=== PATIENT | male | born 1985 | race Caucasian/White ===

== ENCOUNTER 2016-07-29 12:17 | Emergency (ER) | payer SELFPAY ==
[2016-07-29] MEDS ORDERED: NORCO, ANEXSIA 5/325MG TABLET (HYDROcodone/ACETAMINOPHEN) As Ordered ONE (12:50)
--- NOTE | 2016-07-29 13:20 | REP ---
Clinical: Trauma . Technique: AP, lateral, bilateral oblique, and coned-down views. Findings: Alignment and lordosis is maintained. The vertebral bodies including transverse process and spinous processes are intact and normal. There is no evidence for acute fracture / compression injury or subluxation. No evidence for spondylolysis or spondylolisthesis. No significant degenerative change is noted. Impression: Normal lumbosacral spine radiograph series. Signed by Bertrand Mistry MD 07/29/2016 01:11 P
--- NOTE | 2016-07-29 13:35 | EDDOCDS ---
Nurse's Notes [facility] Name: Flaquito Mcghee Jr Age: 30 yrs Sex: Male : 1985 Arrival Date: 07/29/2016 Time: 12:17 Bed TR8 Private MD: NO PRIMARY PHYSICIAN, . Diagnosis: Low back pain Presentation: 07/29 12:23 Presenting complaint: Patient states: fell down 4 steps and felt back pop last night. hs1 Patient states used heat and ice last night to try and help with pain and has called off work because he cannot work with pain. Lower back around hip area radiates to upper back. Adult Sepsis Screening: The patient does not have new or worsening altered mentation. Patient's respiratory rate is less than 22. Systolic blood pressure is greater than 100. Patient has a qSOFA score of 0- Negative Sepsis Screen. Suicide/Homicide risk assessment- the patient denies having any suicidal and/or homicidal ideations and does not present with any other emotional, behavioral or mental health complaints. Status: Patient is not a postal service mail processor or dependent. Transition of care: patient was not received from another setting of care. 12:23 Acuity: JOE Level 4 hs1 12:23 Method Of Arrival: Walkin/Carried/Asstd hs1 Triage Assessment: 12:26 General: Appears in no apparent distress, Behavior is appropriate for age, cooperative. hs1 Pain: Location: back Pain currently is 6 out of 10 on a pain scale. Pt Declines HIV testing. Musculoskeletal: Circulation, motion, and sensation intact Range of motion intact in all extremities. Reports Pain is 6 out of 10 on a pain scale. Historical: - Allergies: no known allergies; - Home Meds: 1. Advil PM 200-38 mg oral tab 2 tab (Last dose: 07/28/2016 21:00) - PMHx: Chronic Back pain; - PSHx: none; - Social history: Smoking status: Patient states was never smoker of tobacco. No barriers to communication noted, The patient speaks fluent Serbian, Speaks appropriately for age. - Family history: Not pertinent. - : The pt / caregiver states he / she is not on anticoagulants. Home medication list is obtained from the patient. - Exposure Risk Screening:: None identified. Screenin:31 Screening information is obtained from the patient. Fall risk: No risks identified. ms18 Assistance ADL's: requires no assistance with activities of daily living. Abuse/DV Screen: The patient / caregiver reports he/she is: not in a situation that causes fear, pain or injury. Nutritional screening: No deficits noted. Advance Directives: There is no living will. home support is adequate. Assessment: 13:31 General: Appears in no apparent distress, comfortable, Behavior is appropriate for age, ms18 cooperative, pleasant. Pain: Location: back. Neurological: Level of Consciousness is awake, alert, obeys commands, Oriented to person, place, time. Cardiovascular: Chest pain is denied. Respiratory: Airway is patent Respiratory effort is even, unlabored, Denies shortness of breath. Derm: Skin is pink, warm & dry. Musculoskeletal: Range of motion intact in all extremities. No deformity noted. Vital Signs: 12:18 BP 115 / 75; Pulse 108; Resp 18 S; Temp 96.8; Pulse Ox 99% on R/A; Weight 68.04 kg (R); dd6 Height 5 ft. 9 in. (175.26 cm) (R); 13:33 BP 116 / 54 RA Sitting (auto/lg); Pulse 83; Resp 18; Temp 98.9(O); Pulse Ox 97% on R/A; rs6 Pain 6/10; 12:18 Body Mass Index 22.15 (68.04 kg, 175.26 cm) dd6 Vitals: 12:18 Log In Time: July 29, 2016 at 12:16. dd6 ED Course: 12:18 Patient visited by Rashi Casillas PCA. dd6 12:18 NO PRIMARY PHYSICIAN, . is Private Physician. dd6 12:18 Patient moved to Waiting dd6 12:18 Patient moved to Pre RCE dd6 12:25 Triage Initiated hs1 12:42 Patient moved to Triage 2 hs1 12:44 [facility] ke 12:44 Patient visited by Bhavesh French FNP. ke 12:44 Patient visited by Bhavesh French FNP. ke 12:51 Patient moved to TR6 ms18 12:56 Patient name changed from Flaquito\S\A\S\Taz Jr\S\ to Flaquito\S\Dinh\S\Taz Farias. EDMS 13:01 [facility] Payment Agreement was scanned into [employer] and attached to record. mm15 13:12 Patient moved to TR1 ms18 13:22 Patient visited by Bhavesh French FNP. ke 13:24 [facility] is Referral Physician. ke 13:27 Patient moved to PD2 / 27 ms18 13:31 Patient moved to TR8 ms18 13:31 The patient / caregiver is instructed regarding the plan of care and ED course. Patient ms18 has correct armband on for positive identification. Property sent home with patient. 13:31 No IV's were initiated during this patient's visit. No procedures done that require ms18 assistance. 13:33 Patient visited by Maria Antonia Goodwin PCA. rs6 Administered Medications: 12:51 Drug: HYDROcodone-acetaminophen 1 tabs [hydrocodone 5 mg-acetaminophen 325 mg tablet (1 ms18 tabs)] Route: PO; Order Results: There are currently no results for this order. Outcome: 13:24 Discharge ordered by Provider. ke 13:31 Discharge Assessment: Patient awake, alert and oriented x 3. No cognitive and/or ms18 functional deficits noted. Patient verbalized understanding of disposition instructions. patient administered narcotics - no. The following High Risk Discharge criteria are identified: None. Discharged to home ambulatory. Condition: good Condition: stable. Discharge instructions given to patient, Instructed on discharge instructions, follow up and referral plans. medication usage, Demonstrated understanding of instructions, medications, Pt was receptive of discharge instructions/ teaching. Prescriptions given X 2. No special radiology studies were completed. 13:34 Patient left the ED. ms18 Signatures: Dispatcher MedHo EDMS Bhavesh French FNP FNP ke [place], Daniell, PEWTER CASTER PEWTER CASTER dd6 Afia Gutierrez, RN RN hs1 Shanon Valenzuela mm15 Arcelia Kauffman RN RN ms18 Maria Antonia Goodiwn, PEWTER CASTER PEWTER CASTER rs6 MTDD
--- NOTE | 2016-07-29 13:35 | EDDOCDS ---
Physician Documentation [facility] Name: Flaquito Mcghee Jr Age: 30 yrs Sex: Male : 1985 Arrival Date: 07/29/2016 Time: 12:17 Bed TR8 Private MD: NO PRIMARY PHYSICIAN, . Disposition: 07/29/16 13:24 Discharged to Home/Self Care. Impression: Low back pain. - Condition is Stable. - Discharge Instructions: Back Pain, Adult, Musculoskeletal Pain. - Prescriptions for Ibuprofen 600 mg Oral Tablet - take 1 tablet by ORAL route every 6 hours As needed take with food; 30 tablet. Cyclobenzaprine 10 mg Oral Tablet - take 1 tablet by ORAL route 3 times per day As needed; 15 tablet. - Medication Reconciliation, Local Pharmacy Hours form. - Follow up: [facility]; When: Call to arrange an appointment; Reason: Continuance of care. - Problem is an acute exacerbation. - Symptoms are unchanged. Historical: - Allergies: no known allergies; - Home Meds: 1. Advil PM 200-38 mg oral tab 2 tab (Last dose: 07/28/2016 21:00) - PMHx: Chronic Back pain; - PSHx: none; - Social history: Smoking status: Patient states was never smoker of tobacco. No barriers to communication noted, The patient speaks fluent Tuvaluan, Speaks appropriately for age. - Family history: Not pertinent. - : The pt / caregiver states he / she is not on anticoagulants. Home medication list is obtained from the patient. - Exposure Risk Screening:: None identified. Vital Signs: 07/29 12:18 BP 115 / 75; Pulse 108; Resp 18 S; Temp 96.8; Pulse Ox 99% on R/A; Weight 68.04 kg / dd6 150 lbs (R); Height 5 ft. 9 in. (175.26 cm) (R); 13:33 BP 116 / 54 RA Sitting (auto/lg); Pulse 83; Resp 18; Temp 98.9(O); Pulse Ox 97% on R/A; rs6 Pain 12/27; 12:18 Body Mass Index 22.15 (68.04 kg, 175.26 cm) dd6 MDM: 12:48 HYDROcodone-acetaminophen 5 mg-325 mg 1 tabs PO once ordered. ke 12:49 Spine. Lumbosacral, Complete Ordered. EDMS 13:01 Financial registration complete. mm15 13:01 [facility] Payment Agreement was scanned into [employer] and attached to record. mm15 Administered Medications: 12:51 Drug: HYDROcodone-acetaminophen 1 tabs [hydrocodone 5 mg-acetaminophen 325 mg tablet (1 ms18 tabs)] Route: PO; Signatures: Dispatcher MedHost EDMS Bhavesh French FNP HARBOR ENGINEER Afia Sanchez RN RN hs1 Shanon Valenzuela mm15 Arcelia Kauffman RN RN ms18 The chart was reviewed and I authenticate all verbal orders and agree with the evaluation and treatment provided.Attachments: 13:01 [facility] Payment Agreement mm15 MTDD
--- NOTE | 2016-07-31 14:35 | EDDOCDS ---
Nurse's Notes [facility] Name: Flaquito Mcghee Jr Age: 30 yrs Sex: Male : 1985 Arrival Date: 07/29/2016 Time: 12:17 Bed TR8 Private MD: NO PRIMARY PHYSICIAN, . Diagnosis: Low back pain Presentation: 07/29 12:23 Presenting complaint: Patient states: fell down 4 steps and felt back pop last night. hs1 Patient states used heat and ice last night to try and help with pain and has called off work because he cannot work with pain. Lower back around hip area radiates to upper back. Adult Sepsis Screening: The patient does not have new or worsening altered mentation. Patient's respiratory rate is less than 22. Systolic blood pressure is greater than 100. Patient has a qSOFA score of 0- Negative Sepsis Screen. Suicide/Homicide risk assessment- the patient denies having any suicidal and/or homicidal ideations and does not present with any other emotional, behavioral or mental health complaints. Status: Patient is not a protective service specialist or dependent. Transition of care: patient was not received from another setting of care. 12:23 Acuity: JOE Level 4 hs1 12:23 Method Of Arrival: Walkin/Carried/Asstd hs1 Triage Assessment: 12:26 General: Appears in no apparent distress, Behavior is appropriate for age, cooperative. hs1 Pain: Location: back Pain currently is 6 out of 10 on a pain scale. Pt Declines HIV testing. Musculoskeletal: Circulation, motion, and sensation intact Range of motion intact in all extremities. Reports Pain is 6 out of 10 on a pain scale. Historical: - Allergies: no known allergies; - Home Meds: 1. Advil PM 200-38 mg oral tab 2 tab (Last dose: 07/28/2016 21:00) - PMHx: Chronic Back pain; - PSHx: none; - Social history: Smoking status: Patient states was never smoker of tobacco. No barriers to communication noted, The patient speaks fluent Yoruba, Speaks appropriately for age. - Family history: Not pertinent. - : The pt / caregiver states he / she is not on anticoagulants. Home medication list is obtained from the patient. - Exposure Risk Screening:: None identified. Screenin:31 Screening information is obtained from the patient. Fall risk: No risks identified. ms18 Assistance ADL's: requires no assistance with activities of daily living. Abuse/DV Screen: The patient / caregiver reports he/she is: not in a situation that causes fear, pain or injury. Nutritional screening: No deficits noted. Advance Directives: There is no living will. home support is adequate. Assessment: 13:31 General: Appears in no apparent distress, comfortable, Behavior is appropriate for age, ms18 cooperative, pleasant. Pain: Location: back. Neurological: Level of Consciousness is awake, alert, obeys commands, Oriented to person, place, time. Cardiovascular: Chest pain is denied. Respiratory: Airway is patent Respiratory effort is even, unlabored, Denies shortness of breath. Derm: Skin is pink, warm & dry. Musculoskeletal: Range of motion intact in all extremities. No deformity noted. Vital Signs: 12:18 BP 115 / 75; Pulse 108; Resp 18 S; Temp 96.8; Pulse Ox 99% on R/A; Weight 68.04 kg (R); dd6 Height 5 ft. 9 in. (175.26 cm) (R); 13:33 BP 116 / 54 RA Sitting (auto/lg); Pulse 83; Resp 18; Temp 98.9(O); Pulse Ox 97% on R/A; rs6 Pain 6/10; 12:18 Body Mass Index 22.15 (68.04 kg, 175.26 cm) dd6 Vitals: 12:18 Log In Time: July 29, 2016 at 12:16. dd6 ED Course: 12:18 Patient visited by Rashi Casillas PCA. dd6 12:18 NO PRIMARY PHYSICIAN, . is Private Physician. dd6 12:18 Patient moved to Waiting dd6 12:18 Patient moved to Pre RCE dd6 12:25 Triage Initiated hs1 12:42 Patient moved to Triage 2 hs1 12:44 [facility] ke 12:44 Patient visited by Bhavesh French FNP. ke 12:44 Patient visited by Bhavesh French FNP. ke 12:51 Patient moved to TR6 ms18 12:56 Patient name changed from Flaquito\S\A\S\Taz Jr\S\ to Flaquito\S\Dinh\S\Taz Farias. EDMS 13:01 [facility] Payment Agreement was scanned into pMDsoft and attached to record. mm15 13:12 Patient moved to TR1 ms18 13:22 Patient visited by Bhavesh French FNP. ke 13:24 [facility] is Referral Physician. ke 13:27 Patient moved to PD2 / 27 ms18 13:31 Patient moved to TR8 ms18 13:31 The patient / caregiver is instructed regarding the plan of care and ED course. Patient ms18 has correct armband on for positive identification. Property sent home with patient. 13:31 No IV's were initiated during this patient's visit. No procedures done that require ms18 assistance. 13:33 Patient visited by Maria Antonia Goodwin PCA. rs6 14:14 Spine. Lumbosacral, Complete Returned. EDMS 14:30 T-Sheet-- Draft Copy was scanned into pMDsoft and attached to record. gb Administered Medications: 12:51 Drug: HYDROcodone-acetaminophen 1 tabs [hydrocodone 5 mg-acetaminophen 325 mg tablet (1 ms18 tabs)] Route: PO; Order Results: Radiology Order: Spine. Lumbosacral, Complete Test: Spine. Lumbosacral, Complete REASON FOR EXAMINATION: Trauma; Clinical: Trauma .; ; Technique: AP, lateral, bilateral oblique, and coned-down views.; ; Findings: Alignment and lordosis is maintained. The vertebral bodies including; transverse process and spinous processes are intact and normal. There is no; evidence for acute fracture / compression injury or subluxation. No evidence for; spondylolysis or spondylolisthesis. No significant degenerative change is; noted.; ; Impression:; Normal lumbosacral spine radiograph series.; ; ; Signed by; Bertrand Mistry MD 07/29/2016 01:11 P; Outcome: 13:24 Discharge ordered by Provider. ke 13:31 Discharge Assessment: Patient awake, alert and oriented x 3. No cognitive and/or ms18 functional deficits noted. Patient verbalized understanding of disposition instructions. patient administered narcotics - no. The following High Risk Discharge criteria are identified: None. Discharged to home ambulatory. Condition: good Condition: stable. Discharge instructions given to patient, Instructed on discharge instructions, follow up and referral plans. medication usage, Demonstrated understanding of instructions, medications, Pt was receptive of discharge instructions/ teaching. Prescriptions given X 2. No special radiology studies were completed. 13:34 Patient left the ED. ms18 Signatures: Dispatcher MedHost EDMS Quita Collins, Reg Reg gb Bhavesh French, DESIGN SALES CONSULTANT DESIGN SALES CONSULTANT Rashi Oconnor, CRITICAL CARE NURSE PRACTITIONER CRITICAL CARE NURSE PRACTITIONER dd6 Afia Gutierrez, RN RN hs1 Shanon Valenzuela mm15 Arcelia Kauffman RN RN ms18 Maria Antonia Goodwin, CRITICAL CARE NURSE PRACTITIONER CRITICAL CARE NURSE PRACTITIONER rs6 Chart Complete MTDD
--- NOTE | 2016-07-31 14:35 | EDDOCDS ---
Physician Documentation [facility] Name: Flaquito Mcghee Jr Age: 30 yrs Sex: Male : 1985 Arrival Date: 07/29/2016 Time: 12:17 Bed TR8 Private MD: NO PRIMARY PHYSICIAN, . Disposition: 07/29/16 13:24 Discharged to Home/Self Care. Impression: Low back pain. - Condition is Stable. - Discharge Instructions: Back Pain, Adult, Musculoskeletal Pain. - Prescriptions for Ibuprofen 600 mg Oral Tablet - take 1 tablet by ORAL route every 6 hours As needed take with food; 30 tablet. Cyclobenzaprine 10 mg Oral Tablet - take 1 tablet by ORAL route 3 times per day As needed; 15 tablet. - Medication Reconciliation, Local Pharmacy Hours form. - Follow up: [facility]; When: Call to arrange an appointment; Reason: Continuance of care. - Problem is an acute exacerbation. - Symptoms are unchanged. Historical: - Allergies: no known allergies; - Home Meds: 1. Advil PM 200-38 mg oral tab 2 tab (Last dose: 07/28/2016 21:00) - PMHx: Chronic Back pain; - PSHx: none; - Social history: Smoking status: Patient states was never smoker of tobacco. No barriers to communication noted, The patient speaks fluent North Korean, Speaks appropriately for age. - Family history: Not pertinent. - : The pt / caregiver states he / she is not on anticoagulants. Home medication list is obtained from the patient. - Exposure Risk Screening:: None identified. Vital Signs: 07/29 12:18 BP 115 / 75; Pulse 108; Resp 18 S; Temp 96.8; Pulse Ox 99% on R/A; Weight 68.04 kg / dd6 150 lbs (R); Height 5 ft. 9 in. (175.26 cm) (R); 13:33 BP 116 / 54 RA Sitting (auto/lg); Pulse 83; Resp 18; Temp 98.9(O); Pulse Ox 97% on R/A; rs6 Pain 12/27; 12:18 Body Mass Index 22.15 (68.04 kg, 175.26 cm) dd6 MDM: 12:48 HYDROcodone-acetaminophen 5 mg-325 mg 1 tabs PO once ordered. ke 12:49 Spine. Lumbosacral, Complete Ordered. EDMS 13:01 Financial registration complete. mm15 13:01 [facility] Payment Agreement was scanned into [employer] and attached to record. mm15 14:30 T-Sheet-- Draft Copy was scanned into [employer] and attached to record. gb Administered Medications: 12:51 Drug: HYDROcodone-acetaminophen 1 tabs [hydrocodone 5 mg-acetaminophen 325 mg tablet (1 ms18 tabs)] Route: PO; Signatures: Dispatcher MedHost EDMS Quita Collins, Reg Reg gb Bhavesh French, POLE CLASSIFIER POLE CLASSIFIER Afia Sanchez RN RN hs1 Shanon Valenzuela mm15 Arcelia Kauffman,ZAID RN ms18 The chart was reviewed and I authenticate all verbal orders and agree with the evaluation and treatment provided.Attachments: 13:01 [facility] Payment Agreement mm15 14:30 T-Sheet-- Draft Copy gb Chart Complete MTDD
--- NOTE | 2016-07-31 14:35 | EDDOCDS ---
Physician Documentation [facility] Name: Flaquito Mcghee Jr Age: 30 yrs Sex: Male : 1985 Arrival Date: 07/29/2016 Time: 12:17 Bed TR8 Private MD: NO PRIMARY PHYSICIAN, . Disposition: 07/29/16 13:24 Discharged to Home/Self Care. Impression: Low back pain. - Condition is Stable. - Discharge Instructions: Back Pain, Adult, Musculoskeletal Pain. - Prescriptions for Ibuprofen 600 mg Oral Tablet - take 1 tablet by ORAL route every 6 hours As needed take with food; 30 tablet. Cyclobenzaprine 10 mg Oral Tablet - take 1 tablet by ORAL route 3 times per day As needed; 15 tablet. - Medication Reconciliation, Local Pharmacy Hours form. - Follow up: [facility]; When: Call to arrange an appointment; Reason: Continuance of care. - Problem is an acute exacerbation. - Symptoms are unchanged. Historical: - Allergies: no known allergies; - Home Meds: 1. Advil PM 200-38 mg oral tab 2 tab (Last dose: 07/28/2016 21:00) - PMHx: Chronic Back pain; - PSHx: none; - Social history: Smoking status: Patient states was never smoker of tobacco. No barriers to communication noted, The patient speaks fluent Cambodian, Speaks appropriately for age. - Family history: Not pertinent. - : The pt / caregiver states he / she is not on anticoagulants. Home medication list is obtained from the patient. - Exposure Risk Screening:: None identified. Vital Signs: 07/29 12:18 BP 115 / 75; Pulse 108; Resp 18 S; Temp 96.8; Pulse Ox 99% on R/A; Weight 68.04 kg / dd6 150 lbs (R); Height 5 ft. 9 in. (175.26 cm) (R); 13:33 BP 116 / 54 RA Sitting (auto/lg); Pulse 83; Resp 18; Temp 98.9(O); Pulse Ox 97% on R/A; rs6 Pain 12/27; 12:18 Body Mass Index 22.15 (68.04 kg, 175.26 cm) dd6 MDM: 12:48 HYDROcodone-acetaminophen 5 mg-325 mg 1 tabs PO once ordered. ke 12:49 Spine. Lumbosacral, Complete Ordered. EDMS 13:01 Financial registration complete. mm15 13:01 [facility] Payment Agreement was scanned into [employer] and attached to record. mm15 14:30 T-Sheet-- Draft Copy was scanned into [employer] and attached to record. gb Administered Medications: 12:51 Drug: HYDROcodone-acetaminophen 1 tabs [hydrocodone 5 mg-acetaminophen 325 mg tablet (1 ms18 tabs)] Route: PO; Signatures: Dispatcher MedHost EDMS Quita Collins, Reg Reg gb Bhavesh French, MEDICAL ECONOMICS CONSULTANT MEDICAL ECONOMICS CONSULTANT Afia Sanchez RN RN hs1 Shanon Valenzuela mm15 Arcelia Kauffman,ZAID RN ms18 The chart was reviewed and I authenticate all verbal orders and agree with the evaluation and treatment provided.Attachments: 13:01 [facility] Payment Agreement mm15 14:30 T-Sheet-- Draft Copy gb Chart Complete MTDD
== END 2016-07-29 13:34 | disposition home or self-care (01) ==
LOC: M ED 12:17
DX: S30.0XXA Contusion of lower back and pelvis, initial encounter (principal); S33.9XXA Sprain of unspecified parts of lumbar spine and pelvis, initial encounter; W10.9XXA Fall (on) (from) unspecified stairs and steps, initial encounter; Y92.89 Other specified places as the place of occurrence of the external cause; Y93.89 Activity, other specified; Y99.8 Other external cause status; Z79.1 Long term (current) use of non-steroidal anti-inflammatories (NSAID)